=== PATIENT | female | born 1970 | race Two or more races ===

== ENCOUNTER 2024-11-25 16:55 | Emergency (ER) | payer MEDICAID, SELFPAY ==
[2024-11-25 17:06] VITALS: PULSE 72; RESP 16; O2SAT 99
[2024-11-25 17:46] VITALS: BP 153/83; PULSE 78; RESP 18; TEMP 36.6; O2SAT 95; BMI 38.7
--- NOTE | 2024-11-25 17:47 | EDNOTE_ITS ---
ED Animal Bite RME/HPI General Stated Complaint: DOG BITE Time Seen by Provider: 11/25/24 17:30 Source: patient Arrival date/time: 11/25/24 16:55 54-year-old female with no known medical history presents to the emergency room with a chief complaint of a dog bite to the right lower extremity that occurred 2 hours ago Mode of arrival: ambulatory Limitations: no limitations Related Data Home Medications ?Medication ?Instructions ?Recorded ?Confirmed No Known Home Medications 08/13/2407/26 Previous Rx's ?Medication ?Instructions ?Recorded amoxicillin 875 mg-potassium 1 tab PO BID 7 days #14 t abs 11/25/24 clavulanate 125 mg tablet Allergies Allergy/AdvReac Type Severity Reaction Status Date / Time No Known Allergies Allergy Verified 08/13/24 12:20 Review of Systems Review of Systems Systems Reviewed: All systems reviewed, normal except as documented Constitutional Constitutional: Reports system reviewed and no additional complaints, except as documented, Denies fatigue, Denies fever(s), Denies headache(s) and Denies weakness Eyes Eyes: Reports system reviewed and no additional complaints, except as docum ented, Denies blurry vision and Denies change in vision ENT Ears, Nose, Mouth, and Throat: Reports system reviewed and no additional complaints, except as documented, Denies otalgia, Denies headache(s), Denies nasal congestion, Denies throat swelling and Denies vertigo Cardiovascular Cardiovascular: Reports system reviewed and no additional complaints, except as documented, Denies chest pain, Denies dyspnea and Denies dyspnea on exertion Respiratory Respiratory: Reports system reviewed and no additional complaints, except as documented, Denies chest congestion, Denies cough, Denies dyspnea, Denies dyspnea on exertion and Denies wheezing Gastrointestinal Gastrointestinal: Reports system reviewed and no additional complaints, except as documented, Denies abdominal pain, Denies cramping, Denies nausea and Denies vomiting Genitourinary Genitourinary: Reports system reviewed and no additional complaints, except as documented Musculoskeletal Musculoskeletal: Reports system reviewed and no additional complaints, except as documented and Denies back pain Integumentary/Breasts Skin/Breast: Reports system reviewed and no additional complaints, except as documented and Reports wounds (Dog bite to the right lower extremity) Neurologic Neurologic: Reports system reviewed and no additional complaints, except as documented, Denies confusion, Denies headache(s), Denies lack of coordination, Denies vertigo and Denies weakness Psychiatric Psychiatric: Reports system reviewed and no additional complaints, except as documented, Denies anxiety, Denies confusion, Denies depression, Denies paranoia, Denies suicidal ideation and Denies tactile hallucinations Endocrine Endocrine: Reports system reviewed and no additional complaints, except as documented and Denies fatigue Hematologic/Lymphatic Hematologic/Lymphatic: Reports system reviewed and no additional complaints, except as documented and Denies lymphadenopathy Allergic/Immunologic Allergic/Immunologic: Reports system reviewed and no additional complaints, except as documented, Denies throat swelling, Denies urticaria and Denies wheezing Past Medical History Past Medical History NEUROLOGIC: Negative Neurological Disorders or Seizures CARDIAC: Positive Cardiac Disorders (varicose veins) and Hypercholesterolemia; Negative Congestive Heart Failure RESPIRATORY: Negative Chronic Obstructive Pulmonary Disease (COPD) or Asthma GASTROINTESTINAL: Positive Gastrointestinal Disorders GENITOURINARY: Negative Genitourinary Disorders or Renal Disease MUSCULOSKELETAL: Negative Musculoskeletal Disorders ENDOCRINE: Positive Endocrine Disorders and Diabetes Mellitus Type 2 (pt states no meds); Negative Diabetes Mellitus Type 1 HEMATOLOGIC: Negative Sickle Cell Disease OTHER HISTORY: Positive Chicken Pox; Negative Hospitalization, Down Syndrome, Developmental Delay, Falls, Blood Transfusions or Anesthesia Reactions Social History SMOKING STATUS: Never smoker ED Exam General Limitations: Present no limitations General appearance: Present alert and in no apparent distress Head Head exam: Present atraumatic Eye Eye exam: Present normal appearance, PERRL and EOMI ENT ENT exam: Present normal exam, normal oropharynx and mucous membranes moist Neck Neck exam: Present normal inspection, full ROM and trachea midline Chest Chest inspection: Present normal inspection and symmetric chest wall rise Respiratory Respiratory exam: Present normal lung sounds bilaterally Cardiovascular Cardiovascular exam: Present regular rate, normal rhythm and normal heart sounds Abdominal Exam Abdominal exam: Present soft and normal bowel sounds Extremities Exam Extremities exam: Present normal inspection and full ROM Expanded Lower Extremity Exam Hip/Pelvis exam: Present normal inspection Upper leg exam: Present normal inspection Knee exam: Present normal inspection Lower leg exam: Present normal inspection, tenderness, swelling, erythema and other (Dog bite) Back Exam Back exam: Present normal inspection and full ROM Neurological Exam Neurological exam: Present alert, oriented X3 and CN II-XII intact Psychiatric Psychiatric exam: Present normal affect and normal mood Skin Skin exam: Present warm, dry, intact and normal color Course Quality Measures none Orders Category Date Time Status Tet,Diphth,Pertuss(Acell)-Tdap [Boostrix Vacc] Med 11/25/24 17:42 Discontinued 0.5 ml IMI .ONCE ONE Vital Signs Vital signs: Vital Signs Temperature 98 F 11/25/24 17:46 Pulse Rate 78 11/25/24 17:46 Respiratory Rate 18 11/25/24 17:46 Blood Pressure 153/83 H 11/25/24 17:46 Pulse Oximetry (%) 95 11/25/24 17:46 Oxygen Delivery Method Room Air 11/25/24 17:46 O2 saturation 95% within normal limits Animal Bite MDM Narrative MDM Narrative:: 54-year-old female with no known medical history presents to the emergency room with a chief complaint of a dog bite to the right lower extremity that occurred 2 hours ago Patient is hemodynamically stable and in no apparent distress Physical examination shows a dog bite to the right lower extremity. There is no open laceration that needs any suturing. This is an abrasion. The area is warm to the touch patient states she feels a pulsating. Wound care was performed the area was cleaned and irrigated with normal saline. A dressing was placed. Tetanus vaccination was updated Oral Augmentin was sent to the patient's pharmacy patient was educated to follow-up with primary care provider in the next 24 to 48 hours or return to the emergency room for any evidence of worsening signs or symptoms Patient data External records reviewed:: [facility] previous records Clinical information provided by:: patient Social determinants that could affect healthcare access:: none Patient has the following chronic illnesses:: No chronic illness How is presenting disease/condition affected by chronic disease/condition?: no chronic disease Evaluation data The following diagnostics were reviewed and interpreted by me:: lab results and radiology exam(s) Lab and/or radiology exams considered but not ordered:: Labs and radiology exams considered in order Interpretation Summary: N/A Medications / Prescriptions Medications or Prescriptions considered but not ordered:: Medication given Medication administrations:: Medication Administration History Discontinued Medications Diphtheria/Tetanus/Acell Pertussis (Diphth,Pertuss(Acell),Tet Vac 0.5 Ml Syr- Adult) 0.5 ml IMi .ONCE ONE Stop: 11/25/24 17:43 Rx given Consultations Consultation(s) initiated? (list below): No Diagnosis Differential diagnosis animal bite: bite by animal, cat bite, dog bite and rabies contact Most likely diagnosis given after review of the tests above:: Dog bite Admission Indicated Admission indicated?: not indicated Admission Request Was there a request for admission?: No Disposition Plan Disposition Plan: Discharge Discharge Attestation Discharge Attestation: The patient and all family members were given an opportunity to ask questions and understood the discharge instructions. Discharge instructions specifically effects, indications for sooner follow up or return to the emergency department, and the expected course of current diagnosis. Patient condition: Stable Discharge Plan Plan Patient Disposition: HOME (Self Care) Disposition Comment: Stable Prescriptions/Referrals Prescriptions/Med Rec: New amoxicillin-pot clavulanate 875-125 mg tablet 1 tab PO BID 7 Days Qty: 14 0RF No Action No Known Home Medications Problem List Clinical Impression: Dog bite of extremity Patient/Caregiver Discharge Instructions Additional Instructions: Por favor, consulte con lobo m?dico de cabecera en las pr?ximas 24 horas. Los antibi?ticos se env?an a lobo farmacia, rec?jalos y t?melos seg?n lo indicado. Si hay evidencia de empeoramiento de los signos o s?ntomas, regrese a la cesar de emergencias de inmediato. Print Language: Slovenian Stand Alone Forms: Marina Award Info., Patient Portal Info Letter Vaccines Vaccines Given During Stay: TDaP PA/ASSISTANT PROSECUTING ATTORNEY Supervising Physician PA/ASSISTANT PROSECUTING ATTORNEY Supervising Physician: Dr. Valdovinos
[2024-11-25] MEDS: DIPHTH,PERTUSS(ACELL),TET VAC 0.5 ML SYR- ADULT IMi (17:51)
== END 2024-11-25 18:28 | disposition home or self-care (01) ==
LOC: SERX 18:29
PROVIDERS: Emergency Provider Emergency Medicine
DX: S81.851A Open bite, right lower leg, initial encounter (principal); W54.0XXA Bitten by dog, initial encounter; Z23 Encounter for immunization
CPT/HCPCS: 90471; 90715; 99282

== ENCOUNTER → 2025-01-23 | Outpatient (CLI) | payer MEDICAID, SELFPAY ==
[2025-01-22 17:19] LABS: HCG Qualitative,Urine Negative
--- NOTE | 2025-01-23 12:30 | XR_ITS ---
Examination: CT chest, without intravenous contrast. Sagittal and coronal 2-D reconstructions. Exam date and time: The second 2024 1241 hours Comparison January 15, 2023 INDICATIONS: Coughing several months CTDI:vol (mGy) 16.1 DLP: (mGycm) 525 Technique: Multiple 3.0 mm axial sections of the chest to been obtained. Bone and lung density settings are obtained. Sagittal and coronal 2-D reconstructions have been obtained. Low dose protocols were performed. One or more of the following dose reduction techniques were used; automated exposure control, adjustment of the mA and/or KV according to patient size, use of iterative reconstruction technique. Findings: No thoracic aortic aneurysmal dilatation Pulmonary artery segments are not enlarged. Mild enlargement left atrium left ventricle. No paratracheal tracheobronchial or bronchopulmonary adenopathy No pneumonia or pulmonary edema or pleural disease No focal liver or splenic lesions Contracted gallbladder Kidneys partially visualized no hydronephrosis Moderate thoracic spondylosis IMPRESSION: No mediastinal lymphadenopathy No pneumonia, pulmonary edema or pleural disease
== END | disposition home or self-care (01) ==
PROVIDERS: PCP Physician Assistant; Referring Provider Internal Medicine; Visit Provider Internal Medicine
DX: R05.3 Chronic cough (principal); Z86.711 Personal history of pulmonary embolism; Z32.00 Encounter for pregnancy test, result unknown
CPT/HCPCS: 71250; 81025

== ENCOUNTER 2025-03-25 12:40 | Day surgery (SDC) | payer MEDICAID, SELFPAY ==
[2025-03-24 11:41] LABS: HCG,Qualitative Serum Negative
[2025-03-24 12:01] VITALS: BMI 38.5
[2025-03-25] VITALS (13 sets, daily range): BP systolic 116–184; BP diastolic 65–103; PULSE 56–86; RESP 13–23; TEMP 36.6–36.8; O2SAT 92–100; BMI 38.9
[2025-03-25] MEDS: RINGERS LACTATED 1000 ML 1,000 ML 100 ML IV (14:21)
[2025-03-25] MEDS: fentaNYL CIT INJ 50 mCg/ML AMP 2ML IVP (14:29)
[2025-03-25] MEDS: MIDAZOLAM INJ 1 MG/ML VIAL 2 ML 2 MG IVP (14:38)
--- NOTE | 2025-03-25 15:15 | SUR.PHASEII ---
@1449 patient into recovery with no acute distress noted, V/S stable, patient resting comfortably, patient denies pain and nausea at this time, report received from Melissa CARDOSO. @1500 patient repositions self for comfort. patient abdomen tender to the touch. at bedside assessing patient. Per patient had a difficult colonoscopy and wants to ensure patient is not in pain prior to going home. @1515 patient instructed to reposition self to aid in passing flatus, v/s remain stable, no complaints of pain or nausea at this time.
--- NOTE | 2025-03-25 15:25 | SUR.PHASEII ---
patient reports having a little but of pain and only passing small amounts of flatus (spanish medical interpreter Roseann). dulcolax suppository administered.
--- NOTE | 2025-03-25 15:30 | SUR.PHASEII ---
1530 calls to check on the status of the patient. informed that the patient is tender to the touch of the abdomen but otherwise is resting comfortably however has passed very small amounts amounts of flatus. No new orders at this time.
--- NOTE | 2025-03-25 15:45 | SUR.PHASEII ---
1545 at bedside assessing patient with santos RN/Certified Farm Manager. patient has now passed large amounts of flatus and feels great releif. Per patient may be discharged home and is to report any pain to him directly via his cellphone number.
--- NOTE | 2025-03-25 16:00 | SUR.PHASEII ---
1550 patient ambulates to bathroom with no difficulty and no need for assistance. patient getting dressed.
--- NOTE | 2025-03-25 16:13 | SUR.PHASEII ---
D/C Instructions given by Roseann CARDOSO/Certified Natural Resource Economist.
== END 2025-03-25 16:13 | disposition home or self-care (01) ==
PROVIDERS: PCP Physician Assistant; Referring Provider Surgery; Visit Provider Surgery
PROC: 0DBE8ZX Excision of Large Intestine, Via Natural or Artificial Opening Endoscopic, Diagnostic (ICD-10-PCS; CPT 45380; principal; 2025-03-25 14:30)
DX: Z12.11 Encounter for screening for malignant neoplasm of colon (principal); K57.30 Diverticulosis of large intestine without perforation or abscess without bleeding
CPT/HCPCS: 45378; 36415; 81025; 84703; J1200; J2250; J3010; J7120; A9270

== ENCOUNTER → 2025-05-20 | Outpatient (CLI) | payer MEDICAID, SELFPAY ==
--- NOTE | 2025-05-20 15:30 | XR_ITS ---
Examination: Venous duplex lower extremity sonogram, bilateral. Date and time of exam: May 20, 2025, 1604 hours INDICATIONS: Bilateral leg swelling and pain beginning 4 months ago. Technique: Multiple sonographic images of the deep venous system have been obtained. B-mode/2-D grayscale imaging of vascular structures and Doppler spectral analysis (waveforms) and color performed Both legs are examined. Findings: Deep venous systems do not demonstrate abnormal echogenicity. All visualized deep veins exhibit compressibility. All visualized deep veins exhibit augmentation. Impression: Negative for deep vein thrombosis
== END | disposition home or self-care (01) ==
LOC: CDIM 15:43
PROVIDERS: PCP Physician Assistant; Referring Provider Physician Assistant; Visit Provider Physician Assistant
DX: M79.605 Pain in left leg (principal); M79.604 Pain in right leg; I83.891 Varicose veins of right lower extremity with other complications
CPT/HCPCS: 93970

== ENCOUNTER 2025-06-19 10:34 | Emergency (ER) | payer MEDICAID, SELFPAY ==
[2025-06-19 10:54] VITALS: BP 142/68; PULSE 56; RESP 18; TEMP 37; O2SAT 95; BMI 36.3
--- NOTE | 2025-06-19 11:13 | XR_ITS ---
Examination: Duplex scan of the lower extremity, unilateral left Date and time of exam: June 19, thousand 25, 1238 hours INDICATIONS: Left leg swelling and pain today Technique: Duplex scan of the extremity veins using B-mode/grayscale imaging and Doppler spectral analysis and color flow Attention is directed to internal echogenicity, compression and augmentation involving these veins, color flow assessment, spectral analysis Findings: Major deep venous structures in the extremity demonstrate normal course and caliber. There is no evidence of deep vein thrombosis. Normal color flow and spectral analysis Impression: Negative for DVT..
--- NOTE | 2025-06-19 11:31 | EDNOTE_ITS ---
ED Extremity Problem RME/HPI General Chief complaint: Extremity Problem,Nontraumatic Stated complaint: Left leg pain X 1 week Time Seen by Provider: 06/19/25 10:53 Source: patient Arrival date/time: 06/19/25 10:34 55-year-old female with a history of DVT presents to the emergency room with a chief complaint of swelling and tenderness to her left leg x 1 week Mode of arrival: ambulatory Limitations: no limitations Related Data Home Medications ?Medication ?Instructions ?Recorded ?Confirmed No Known Home Medications 08/13/24 07/0 10/18 Allergies Allergy/AdvReac Type Severity Reaction Status Date / Time No Known Allergies Allergy Verified 06/19/25 10:39 Review of Systems Review of Systems Systems Reviewed: All systems reviewed, normal except as documented Constitutional Constitutional: Reports system reviewed and no additional complaints, except as documented, Denies fatigue, Denies fever(s), Denies headache(s) and Denies weakness Eyes Eyes: Reports system reviewed and no additional complaints, except as documented, Denies blurry vision and Denies change in vision ENT Ears, Nose, Mouth, and Throat: Reports system reviewed and no additional complaints, except as documented, Denies otalgia, Denies headache(s), Denies nasal congestion, Denies throat swelling and Denies vertigo Cardiovascular Cardiovascular: Reports system reviewed and no additional complaints, except as documented, Denies chest pain, Denies dyspnea and Denies dyspnea on exertion Respiratory Respiratory: Reports system reviewed and no additional complaints, except as documented, Denies chest congestion, Denies cough, Denies dyspnea, Denies dyspnea on exertion and Denies wheezing Gastrointestinal Gastrointestinal: Reports system reviewed and no additional complaints, except as documented, Denies abdominal pain, Denies cramping, Denies nausea and Denies vomiting Genitourinary Genitourinary: Reports system reviewed and no additional complaints, except as documented Musculoskeletal Musculoskeletal: Reports system reviewed and no additional complaints, except as documented, Reports arthralgias, Denies back pain, Reports joint swelling and Reports limited range of motion Integumentary/Breasts Skin/Breast: Reports system reviewed and no additional complaints, except as documented and Denies wounds Neurologic Neurologic: Reports system reviewed and no additional complaints, except as documented, Denies confusion, Denies headache(s), Denies lack of coordination, Denies vertigo and Denies weakness Psychiatric Psychiatric: Reports system reviewed and no additional complaints, except as documented, Denies anxiety, Denies confusion, Denies depression, Denies paranoia, Denies suicidal ideation and Denies tactile hallucinations Endocrine Endocrine: Reports system reviewed and no additional complaints, except as documented and Denies fatigue Hematologic/Lymphatic Hematologic/Lymphatic: Reports system reviewed and no additional complaints, except as documented and Denies lymphadenopathy Allergic/Immunologic Allergic/Immunologic: Reports system reviewed and no additional complaints, except as documented, Denies throat swelling, Denies urticaria and Denies wheezing Past Medical History Past Medical History NEUROLOGIC: Negative Neurological Disorders or Seizures CARDIAC: Positive Hypercholesterolemia; Negative Cardiac Disorders or Congestive Heart Failure RESPIRATORY: Negative Chronic Obstructive Pulmonary Disease (COPD) or Asthma GASTROINTESTINAL: Negative Gastrointestinal Disorders GENITOURINARY: Negative Genitourinary Disorders or Renal Disease MUSCULOSKELETAL: Negative Musculoskeletal Disorders ENDOCRINE: Positive Endocrine Disorders; Negative Diabetes Mellitus Type 1 or Diabetes Mellitus Type 2 (PREDM -NO MEDS) HEMATOLOGIC: Negative Sickle Cell Disease OTHER HISTORY: Positive Chicken Pox; Negative Hospitalization, Down Syndrome, Developmental Delay, Falls, Blood Transfusions or Anesthesia Reactions Surgical History SURGICAL: Positive Eye Surgery (Left eye) and Section Social History SMOKING STATUS: Never smoker ED Exam General Limitations: Present no limitations General appearance: Present alert and in no apparent distress Head Head exam: Present atraumatic Eye Eye exam: Present normal appearance, PERRL and EOMI ENT ENT exam: Present normal exam, normal oropharynx and mucous membranes moist Neck Neck exam: Present normal inspection, full ROM and trachea midline Chest Chest inspection: Present normal inspection and symmetric chest wall rise Respiratory Respiratory exam: Present normal lung sounds bilaterally Cardiovascular Cardiovascular exam: Present regular rate, normal rhythm and normal heart sounds Abdominal Exam Abdominal exam: Present soft and normal bowel sounds Extremities Exam Extremities exam: Present normal inspection and full ROM Back Exam Back exam: Present normal inspection, full ROM and sciatic notch tenderness (L) Neurological Exam Neurological exam: Present alert, oriented X3 and CN II-XII intact Psychiatric Psychiatric exam: Present normal affect and normal mood Skin Skin exam: Present warm, dry, intact and normal color Course Quality Measures none Orders Category Date Time Status US venous doppler LE LT Stat Exams 06/19/25 11:13 Completed CBC Stat Lab 06/19/25 11:20 Completed CMP [Comprehensive Metabolic Panel] Stat Lab 06/19/25 11:20 Completed PT [Prothrombin Time with INR] Stat Lab 06/19/25 11:20 Completed PTT [Partial Thromboplastin Time] Stat Lab 06/19/25 11:20 Completed Vital Signs Vital signs: Vital Signs Temperature 98.6 F 06/19/25 10:54 Pulse Rate 56 L 06/19/25 10:54 Respiratory Rate 18 06/19/25 10:54 Blood Pressure 142/68 H 06/19/25 10:54 Pulse Oximetry (%) 95 06/19/25 10:54 Oxygen Delivery Method Room Air 06/19/25 10:54 Extremity Problem MDM Narrative MDM Narrative:: 55-year-old female with a history of DVT presents to the emergency room with a chief complaint of swelling and tenderness to her left leg x 1 week Patient is hemodynamically stable and in no apparent distress Physical examination shows tenderness and pain to the patient's left sciatic notch. The patient has some mild swelling and has a history of DVT. The patient was sent to the emergency room to rule out DVT in the left lower extremity extremity. Ultrasound was completed and was negative for any DVT Patient was discharged and educated to follow-up with primary care provider in the next 24 to 48 hours and return to the emergency room for any evidence of worsening signs or symptoms Patient data External records reviewed:: [facility] previous records Clinical information provided by:: patient Social determinants that could affect healthcare access:: none Patient has the following chronic illnesses:: No chronic illness How is presenting disease/condition affected by chronic disease/condition?: no chronic disease Evaluation data The following diagnostics were reviewed and interpreted by me:: lab results and radiology exam(s) Lab and/or radiology exams considered but not ordered:: Labs and radiology exams considered and ordered Interpretation Summary: Ultrasound Doppler-Findings: Major deep venous structures in the extremity demonstrate normal course and caliber. There is no evidence of deep vein thrombosis. Normal color flow and spectral analysis Impression: Negative for DVT.. Medications / Prescriptions Medications or Prescriptions considered but not ordered:: No medication given Medication administrations:: No medication given Consultations Consultation(s) initiated? (list below): No Diagnosis Extremity Problem Differential Diagnosis: cellulitis, deep venous thrombosis of upper extremity, lower extremity edema and other Most likely diagnosis given after review of the tests above:: Sciatica Admission Indicated Admission indicated?: not indicated Admission Request Was there a request for admission?: No Disposition Plan Disposition Plan: Discharge Discharge Attestation Discharge Attestation: The patient and all family members were given an opportunity to ask questions and understood the discharge instructions. Discharge instructions specifically effects, indications for sooner follow up or return to the emergency department, and the expected course of current diagnosis. Patient condition: Stable Discharge Plan Plan Patient Disposition: HOME (Self Care) Discharge Disposition comment: Stable Prescriptions/Referrals Prescriptions/Med Rec: No Action No Known Home Medications Referrals: Mervat Smith PA-C [Primary Care Provider] - In 1 week Problem List Clinical Impression: Sciatica Patient/Caregiver Discharge Instructions Education Materials: ED Sciatica Additional Instructions: Por favor, consulte con lobo m?dico de cabecera en las pr?ximas 24 a 48 horas. La ecograf?a de lobo extremidad inferior fue negativa para cualquier co?gulo sangu?juan. Si observa cualquier signo de empeoramiento de los signos o s?ntomas, acuda a urgencias de inmediato. Print Language: Turkish Stand Alone Forms: Marina Award Info., Patient Portal Info Letter PA/MIKALA Supervising Physician REEMA/MIKALA Supervising Physician: Dr. Juárez
[2025-06-19 11:42] LABS: Basophils # (Auto) 0.1 Thou/mm3 (0.0-0.2); Basophils % (Auto) 1 % (0-2.5); Eosinophils # (Auto) 0.3 Thou/mm3 (0.0-0.5); Eosinophils % (Auto) 4 % (0-10); Hematocrit 38.6 % (36.0-46.0); Hemoglobin 13.0 g/dL (12.0-16.0); Immature Granulocytes Auto 0.02 Thou/mm3 (0.00-0.00); Lymphocytes # (Auto) 2.2 Thou/mm3 (1.0-4.8); Lymphocytes % (Auto) 29 % (10-50); Mean Corpuscular HGB Conc 33.7 g/dl (31.0-37.0); Mean Corpuscular Hemoglobin 31.0 pg (25.0-35.0); Mean Corpuscular Volume 92 fL (80-100); Monocytes # (Auto) 0.5 Thou/mm3 (0.0-0.8); Monocytes % (Auto) 7 % (0-12); Neutrophils # (Auto) 4.5 Thou/mm3 (1.8-7.7); Neutrophils % (Auto) 59 % (37-80); Nucleated Red Blood Cell # 0.00 Thou/mm3 (0.00-0.00); Nucleated Red Blood Cell % 0 /100 WBC (0); Platelet Count 247 Thou/mm3 (140-440); RDW Standard Deviation 41.7 fL (36.4-46.3); Red Blood Count 4.20 Miln/mm3 (4.00-5.20); White Blood Count 7.6 Thou/mm3 (3.6-11.0)
[2025-06-19 11:54] LABS: INR 1.0 (0.9-1.3); Partial Thromboplastin Time 26.4 Seconds (22.0-36.0); Prothrombin Time 11.2 Seconds (9.0-12.2)
[2025-06-19 11:55] LABS: Alanine Aminotransferase 19 U/L (10-49); Albumin, Serum 4.4 gm/dL (3.5-5.0); Albumin/Globulin Ratio 1.6 (1.2-2.2); Alkaline Phosphatase 107 U/L (46-116); Anion Gap 9 (7-16); Aspartate Amino Transferase 22 U/L (0-34); BUN/Creatinine Ratio 19 Ratio (12-20); Bilirubin,Total 0.3 mg/dL (0.3-1.2); Blood Urea Nitrogen 15 mg/dL (9-23); Calcium 9.3 mg/dL (8.3-10.6); Calcium (Corrected) 9.3 mg/dL (8.5-10.1); Carbon Dioxide 28.4 mMol/L (20.0-31.0); Chloride 105 mMol/L (98-107); Creatinine (Component) 0.8 mg/dL (0.6-1.3); Estimated Creatinine Clearance 91.5 mL/min (>60); Globulin 2.8 gm/dL (2.3-3.5); Glucose 111 mg/dL (74-106); Osmolality,Calculated 284 (275-295); Potassium 4.2 mMol/L (3.4-5.1); Sodium 142 mMol/L (136-145); Total Protein 7.2 gm/dL (5.7-8.2); eGFR > 60 See Note
== END 2025-06-19 14:18 | disposition home or self-care (01) ==
PROVIDERS: Emergency Provider Nurse Practitioner Family; PCP Physician Assistant
DX: M54.32 Sciatica, left side (principal)
CPT/HCPCS: 36415; 80053; 85025; 85610; 85730; 93971; 99283